=== PATIENT | male | born 2000 | race Caucasian/White ===

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

== ENCOUNTER 2022-07-16 08:00 | Emergency (ER) | payer OTHER ==
[~2022-07-16] VITALS: Ht 170.2 cm; Wt 68.2 kg
[~2022-07-16 08:00] MED LIST: PRED20TA PO
[2022-07-16] MEDS ORDERED: KETOROLAC 30 MG/ML 1ML VIAL IV ONE (11:25)
[2022-07-16] MEDS ORDERED: LIDOCAINE 5% (LIDODERM) PATCH TD ONE (11:25)
[2022-07-16] MEDS ORDERED: NS 1,000 ML IV ONE (11:30)
[2022-07-16 11:58] LABS: BASO % 0.3 % (0.0-1.0); EOS # 0.5 10^3/uL (0.0-0.5); EOS % 4.9 % (0.0-3.0); HEMATOCRIT 46.6 % (42.0-52.0); HEMOGLOBIN 15.4 g/dl (13.5-17.5); LYMPH # 1.4 10^3/uL (1.5-5.0); LYMPH % 14.5 % (24.0-44.0); MEAN CORPUSCULAR HEMOGLOBIN 30.8 pg (27.0-33.0); MEAN CORPUSCULAR VOLUME 93.2 fl (80.0-96.0); MONO # 0.7 10^3/uL (0.0-0.8); MONO % 7.5 % (2.0-8.0); NEUTROPHILS # 7.1 10^3/uL (1.5-8.5); NEUTROPHILS % 72.3 % (36.0-66.0); PLATELET COUNT, AUTOMATED 198 10^3/uL (150-450); WHITE BLOOD COUNT 9.8 10^3/uL (4.0-10.0)
[2022-07-16 12:21] LABS: CK-MB VALUE MASS < 1.0 NG/ML (<3.6)
[2022-07-16 12:24] LABS: CPK CREATINE PHOSPHOKINASE 112 U/L (46-171); MB/CK RELATIVE INDEX 0.89 (< OR =4)
[2022-07-16] MEDS ORDERED: NAPR-837 PO (13:38)
[2022-07-16] MEDS ORDERED: ASPE4PAD TOP (13:38)
[2022-07-16 13:45] VITALS: BP 114/53
== END 2022-07-16 13:51 | disposition home or self-care (01) ==
LOC: M ED 08:00
DX: R07.89 Other chest pain (principal)
CPT/HCPCS: 71045; 80047; 82550; 82553; 84484; 85025; 85379; 93005; 96374; 99284; J1885

== ENCOUNTER 2024-07-29 12:08 | Emergency (ER) | payer OTHER ==
[~2024-07-29] VITALS: Ht 170.2 cm; Wt 75.8 kg
[~2024-07-29 12:08] MED LIST changes: +ASPE4PAD TOP; +NAPR-837 PO
[2024-07-29] MEDS ORDERED: MESA1000 (12:19)
[2024-07-29] MEDS ORDERED: CELE1CAP99 (12:19)
[2024-07-29] MEDS ORDERED: D 50CAP2 (12:19)
[2024-07-29] MEDS ORDERED: PANT40TA29 (12:19)
[2024-07-29 16:45] VITALS: BP 137/61; TEMP 98; O2SAT 100
== END 2024-07-29 16:47 | disposition home or self-care (01) ==
LOC: M ED 12:08
DX: T23.171A Burn of first degree of right wrist, initial encounter (principal); X11.8XXA Contact with other hot tap-water, initial encounter; Y92.89 Other specified places as the place of occurrence of the external cause; Y93.89 Activity, other specified; Y99.0 Civilian activity done for income or pay; Z79.2 Long term (current) use of antibiotics; Z79.899 Other long term (current) drug therapy; T31.0 Burns involving less than 10% of body surface